=== PATIENT | female | born 1930 | race Caucasian/White ===

== ENCOUNTER 2016-12-21 08:16 | Observation (INO) ==
--- NOTE | 2016-12-21 08:21 | Emergency Department Note ---
Disposition Clinical Impression: Intractable low back pain Disposition: Admitted As Inpatient Condition: Good Forms: ED Satisfaction Letter Back Pain HPI - General Chief Complaint: ED Back Pain/Injury Stated Complaint: back pain Time Seen by Provider: 12/21/16 08:19 Source: patient, EMS Mode of arrival: EMS Limitations: no limitations Nursing Notes Reviewed: Yes Vital Signs Reviewed: Yes - History of Present Illness HPI Narrative: Patient relates she has been having pain in her mid lumbar region for about 3 days. The pain has been severe enough with motion that she states she has been largely bedridden for 2 days and has suffered to get to the bathroom. She has not had any difficulty with bladder or bowel function and is fully aware of the need to urinate or defecate. She denies any numbness tingling or weakness in the legs but states that she just has too much pain to stand and ambulate at this point. She denies groin numbness. She denies fevers or chills. She denies abdominal pains, weakness or dizziness. She has not been having atypical weight loss but states she did have some night sweats last night. She denies history of similar pain or trouble in the past. She cannot recall any specific fall or injury but states she has been helping a friend lift her walker in and out of her car. She does have a history of breast cancer that was treated in 2011. Pt Subjective Complaint: back pain Onset (ago): day(s) (3) Duration: gradually worsening Similar Symptoms Previously: No Location: lumbar spine Pain Severity: moderate, severe Quality: sharp, aching Radiation: right leg Improves with: immobilization Worsens with: movement, sitting upright, walking Context: unknown Associated symptoms: Reports: difficulty walking. Denies: numbness, weakness, incontinence of bowel/bladder, fever, chills, abdominal pain, dysuria, hematuria - Related Data Home Medications Medication Instructions Recorded Confirmed Levothyroxine [Synthroid] 50 mcg PO AD 02/25/15 12/21/16 Levothyroxine [Synthroid] 75 mcg PO AD 02/25/15 12/21/16 Lovastatin [Mevacor] 10 mg PO HS 02/25/15 12/21/16 Cholecalciferol (D-3) [Vitamin D] 1,000 unit PO DAILY 04/10/16 12/21/16 Lactose-Reduced Food [Ensure 1 bottle PO QWEEK 12/21/16 12/21/16 Original] Previous Rx's Medication Instructions Recorded Anastrozole [Arimidex] 1 mg PO DAILY #90 tablet 08/16/15 Allergies Allergy/AdvReac Type Severity Reaction Status Date / Time No Known Allergies Allergy Verified 12/21/16 08:16 All systems ED: reviewed and negative except as stated. Past Medical History - Past Medical History Attestation: Yes The following information was validated with the patient. Source: patient, old records reviewed, nursing notes reviewed Medical history: Reports: cancer (Right breast cancer), GERD, hyperlipidemia, kidney stones, renal disease, thyroid disease. Denies: CHF, coronary artery disease, DVT, hypertension, pulmonary embolus Surgical history: Reports: breast surgery (Right mastectomy 2011), cholecystectomy, pacemaker/AICD Psychiatric history: Reports: no psych history - Social History Smoking Status: Former smoker Alcohol use: Reports: rarely Drug use: Reports: none Physical Exam - General Limitations: physical limitation (Mobility from back pain) General appearance: alert, in no apparent distress - Head Head exam: atraumatic, normocephalic, normal inspection - Eye Eye exam: Present: normal appearance, PERRL, EOMI - ENT ENT exam: normal exam, normal oropharynx, mucous membranes moist - Neck Neck exam: Present: normal inspection, full ROM, trachea midline - Chest Chest inspection: Present: normal inspection, symmetric chest wall rise. Absent : tenderness - Respiratory Respiratory exam: Present: normal lung sounds bilaterally. Absent: respiratory distress, wheezes, prolonged expiratory phase - Cardiovascular Cardiovascular exam: Present: regular rate, normal rhythm, normal heart sounds. Absent: tachycardia - Abdominal Exam Abdominal exam: Present: soft, Non-Tender, normal bowel sounds. Absent: tenderness, distention, guarding, rebound, rigidity, mass, pulsatile mass - Extremities Exam Extremities exam: Present: normal inspection, full ROM, normal capillary refill. Absent: tenderness, pedal edema, calf tenderness - Expanded Lower Extremity Exam Neurovascular/Tendon exam: Present: normal capillary refill. Absent: motor deficit, sensory deficit, tendon deficit Gait: not tested/not observed - Back Exam Back exam: Present: normal inspection, vertebral tenderness (Mid lumbar). Absent: full ROM, CVA tenderness (R), CVA tenderness (L), muscle spasm, sciatic notch tenderness (R), sciatic notch tenderness (L), straight leg raise (R), straight leg raise (L) - Neurological Exam Neurological exam: Present: alert, oriented X3, reflexes normal (1+ bilateral patella). Absent: motor sensory deficit - Psychiatric Psychiatric exam: Present: normal affect, normal mood - Skin Skin exam: Present: warm, dry, intact, normal color Course Course Narrative: Imaging results are discussed with the patient. She has been given a dose of naproxen, Hooven and a dose of Zofran. Given her disability from this pain with inability to ambulate or function at home, I feel an observation of the hospitalist continued pain medication and consultation with physical therapy will be warranted. A page has been placed to Dr. Lane for this purpose. Vital Signs Temperature 98 F 12/21/16 08:17 Pulse Rate 92 12/21/16 08:17 Respiratory Rate 18 12/21/16 08:17 Blood Pressure 121/93 12/21/16 08:17 O2 Sat by Pulse Oximetry 92 12/21/16 08:17 Temperature 98 F 12/21/16 08:17 Pulse Rate 92 12/21/16 08:17 Respiratory Rate 18 12/21/16 08:17 Blood Pressure 121/93 12/21/16 08:17 O2 Sat by Pulse Oximetry 92 12/21/16 08:17 Oxygen Delivery Oxygen Delivery Room Air Back Pain/Injury - Differential Diagnosis Differential Diagnosis: Likely: lumbar radiculopathy (Compression fracture, bone metastasis, disc herniation, epidural hematoma), sciatica - Radiology Data Radiology results reviewed: Yes I reviewed the patient's radiology results. CT is performed of the lumbar spine. This demonstrates degenerative changes with degenerative disc disease most prominent at L4 and L5. There is mild central disc bulging without compromising impingement on the spinal canal. I do not see significant bulging into the foramen. There is no evidence for fracture or abnormal ossification to suggest possible metastatic disease. The aorta is with scattered calcification and normal in caliber. No other acute abnormalities are seen. This is on my interpretation. Radiologist impression: COMPARISON: 08/05/2013 CT HISTORY: severe LBP, right sciatica, no injury 2 day history of severe lower back pain with sciatica on the right FINDINGS: BONES/ALIGNMENT: 15 degrees levoscoliosis of the lumbar spine. There is no acute fracture or subluxation. DEGENERATIVE CHANGES: L1-L2: There is no significant disc protrusion, central spinal canal stenosis or neural foraminal narrowing. L2-L3: Diffuse disc bulge and mild facet DJD. There is mild spinal canal stenosis. Moderate left neural foraminal stenosis. The right neural foramen is patent. L3-L4: Diffuse disc bulge and moderate facet DJD. There is mild spinal canal stenosis and moderate left neural foraminal stenosis. The neural foramen is patent. L4-L5: Diffuse disc bulge and moderate facet DJD. There is moderate spinal canal stenosis. The neural foramina are patent. L5-S1: Degenerative disc disease and disc bulge. Severe facet DJD. There is moderate spinal canal stenosis. Mild bilateral neural foraminal stenosis. An osteophyte, exacerbated by scoliotic curvature, extending posteriorly to the right from the S1 segment of the sacrum contributes to significant mass effect upon the right descending S2 nerve root. SOFT TISSUES/RETROPERITONEUM: Cardiomegaly and COPD partially visualized in the lower chest. No paraspinal soft tissue findings. Impressions Lumbar Spine CT 12/21/16 08:20 IMPRESSION: 1. Multilevel degenerative changes in the lumbar spine are detailed above. 2. Scoliotic curvature osteophyte contribute to mass effect on the right S2 nerve root at the S1-2 segment. D/ / Raimundo Rollins MD / Raimundo Rollins MD Interpreting Provider: Raimundo Rollins MD
[2016-12-21] MEDS ORDERED: Ondansetron ODT 4 MG TAB.RAPDIS SL ONE (08:45)
[2016-12-21] MEDS ORDERED: *HR* HYDROcodone/Acet 5/325 mg TABLET PO ONE (08:45)
[2016-12-21] MEDS ORDERED: Ondansetron ODT 4 MG TAB.RAPDIS SL PRN (09:54)
[2016-12-21] MEDS ORDERED: *HR* HYDROcodone/Acet 5/325 mg TABLET PO PRN (09:54)
[2016-12-21] MEDS ORDERED: Naloxone 0.4 MG/ML INJ IVP PRN (09:54)
[2016-12-21] MEDS ORDERED: MOM Conc 10 ML UD.LIQ PO PRN (09:54)
[2016-12-21] MEDS ORDERED: predniSONE 20 MG TABLET PO ONE (12:38)
[2016-12-21 13:51] LABS: Basophils % 0.3 %; Eosinophils % 0.4 %; Hematocrit 39.1 % (35.3-44.9); Hemoglobin 12.9 g/dL (11.5-15.4); Immature Granulocytes % 0.3 % (0-4); Lymphocytes # 1.8 K/mcL (0.6-4.6); Lymphocytes % 23.8 %; Mean Corpuscular Hemoglobin 30.3 pg (28.0-33.3); Mean Corpuscular Volume 91.8 fL (83.0-100.0); Mean Platelet Volume 12.2 fL (9.4-12.4); Monocytes # 0.7 K/mcL (0.0-1.3); Monocytes % 9.1 %; Neutrophils # 4.9 K/mcL (1.6-8.9); Platelet Count 168 K/mcL (140-400); Red Blood Count 4.26 M/mcL (3.82-4.97); Red Cell Distribution Width 12.8 % (11.5-14.5); Segmented Neutrophils % 66.1 %
--- NOTE | 2016-12-21 14:06 | Internal Med History&Physical ---
Date of Encounter: 12/21/16 Time of Encounter: 12:10 Assessment and Plan (1) Intractable low back pain Current visit: Yes Status: Acute She has been given a dose of prednisone and Naprosyn. PT and OT evaluations have been ordered. Further workup and intervention will be done as needed. (2) Hypothyroid Current visit: Yes Status: Chronic TSH was normal at 0.592 on 09/12/2016. Qualifiers: Hypothyroidism type: unspecified Qualified Code(s): E03.9 - Hypothyroidism , unspecified (3) Azotemia Current visit: Yes Status: Acute Suspect CKD stage III. Creatinine was 1.26 on 09/09/2014. We will monitor renal indices periodically. Internal Medicine - H&P: HPI Chief complaint: Back pain Admitted From: Home Plans for Post Hospital Care: Home History of present illness: Ms. Cain is a 86 year old female who came to the emergency room stating she had back pain onset 3 days earlier. The pain was in her low back area and radiated down her right leg. It became so severe she was unable to get out of bed the previous 2 days. She states it took her 20 minutes to get out of bed this morning go to the restroom. She was evaluated in emergency room and CT showed multilevel degenerative changes in the lumbar spine with multilevel disc bulging and right S2 nerve root compression from an osteophyte. She was admitted to [facility] floor for ongoing care needs. She states for approximately 10 days she has been helping a neighbor by assisting in transportation including lifting the neighbor's wheeled walker into her car trunk. There was no fall or other injury associated. Her musk skeletal history is negative for gout but she does have known osteoporosis. Past Med Surg Social Fam HX - Past Medical History Medical history: cancer, GERD, hyperlipidemia, kidney stones, renal disease, thyroid disease Psychiatric history: no psych history - Past Surgical History Surgical History: breast surgery, cholecystectomy, pacemaker/AICD - Social History Smoking Status: Former smoker Smokeless Tobacco Status: No Alcohol use: rarely Drug use: none Internal Medicine - H&P: Meds Levothyroxine [Synthroid] 50 mcg PO AD 02/25/15 [History] Levothyroxine [Synthroid] 75 mcg PO AD 02/25/15 [History] Lovastatin [Mevacor] 10 mg PO HS 02/25/15 [History] Anastrozole [Arimidex] 1 mg PO DAILY #90 tablet 08/16/15 [Rx] Cholecalciferol (D-3) [Vitamin D] 1,000 unit PO DAILY 04/10/16 [History] Lactose-Reduced Food [Ensure Original] 1 bottle PO QWEEK 12/21/16 [History] Allergies No Known Allergies Allergy (Verified 12/21/16 08:16) All Systems PM: A 10-system review of systems was performed and is negative for pertinent findings except as documented above in the HPI. Review of systems: Gen.: Her weight has been stable at approximately 90 pounds for several years Cardiovascular: She had a pacemaker placed 2001 for "arrhythmia". She denies hypertension NC heart failure angina DVT or pulmonary embolus Respiratory: She smoked from age [age] never exceeding 1 pack per day. She has not had PFTs recently and does not wear home oxygen. She has not been tested for sleep apnea. GI: She had a gastric ulcer 2013 with biopsy showing no evidence of malignancy. She has no ongoing abdominal pain and no recent change in her bowel habits. She has GERD. She has had cholecystectomy. She denies disorders of her liver or exocrine pancreas. She had colonoscopy approximately 1999. : She has emote history of kidney stones but denies other kidney or bladder disorders. Review of available records show GFR consistent with chronic kidney disease stage III Neurologic: She denies large distribution strokes or seizures Endocrine: She has hypothyroidism and hyperlipidemia but denies DM 2 Hematology/oncology: She had right mastectomy 2011 and is completing a 5 year course of Arimidex. She believes she is cancer free. She denies other internal malignancies or anemia history Psychiatric: She denies anxiety depression or other mental health issues Musk skeletal: As per history of present illness . - Constitutional Vitals: Temp Pulse Resp BP Pulse Ox 97.8 F 71 17 122/74 93 12/21/16 13:58 12/21/16 13:58 12/21/16 13:58 12/21/16 13:58 12/21/16 13:58 Exam: Gen.: She is a well-developed well-nourished female who appears in no severe distress at present time HEENT: Head is atraumatic and normocephalic. Eyes: EOMI. There is no scleral icterus. Mouth: Mucosa is moist. Neck: Supple and nontender. There is no thyromegaly or adenopathy noted. Heart: Regular without murmurs gallops or ectopics. Lungs: No wheezes or crackles are heard. Abdomen: Soft and nontender. No masses or guarding are noted. Extremities: There is no cyanosis edema or clubbing noted. Dorsalis pedis and posterior tibial pulses are trace palpable bilaterally. Back: She complains of low back pain on attempting to rise from a semirecumbent position to upright. Neurologic: Mental status: She is talkative and a good historian. Cranial nerves: Smile is symmetric. Forehead wrinkles bilaterally. Tongue protrudes midline. EOMI. Motor: There is no pronator drift. Cerebellar: Finger to nose is intact bilaterally. Skin: Warm and dry Internal Med - H&P Results - Labs CBC & Chem 7: 12/21/16 13:40 Labs: Short CBC 12/21/16 Range/Units 13:40 WBC 7.4 (4.3-11.1) K/mcL Hgb 12.9 (11.5-15.4) g/dL Hct 39.1 (35.3-44.9) % Plt Count 168 (140-400) K/mcL Neutrophils # 4.9 (1.6-8.9) K/mcL - VTE Documentation of Mechanical Device: Graduated compression elastic hosiery
[2016-12-21 14:08] LABS: Albumin 3.5 g/dL (3.5-5.0); Albumin/Globulin Ratio 0.9 (1.1-2.2); Bilirubin,Total 0.7 mg/dL (0.2-1.2); Calcium 9.6 mg/dL (8.6-10.8); Globulin 3.7 g/dL (2.4-3.5); Total Protein 7.2 g/dL (6.0-8.3)
[2016-12-21] MEDS: predniSONE 20 MG TABLET PO SCH (17:48)
[2016-12-22] MEDS: predniSONE 20 MG TABLET PO SCH (08:17)
[2016-12-22] MEDS ORDERED: Cholecalciferol (D-3) 1,000 UNIT TABLET PO SCH (09:00)
[2016-12-22] MEDS ORDERED: Anastrozole 1 MG TABLET PO SCH (09:00)
--- NOTE | 2016-12-22 09:33 | Internal Med Progress Note ---
Date of Encounter: 12/22/16 Time of Encounter: 09:20 - Assessment and plan (1) Intractable low back pain Current Visit: Yes Status: Acute Assessment and plan: December 22. Will hold Naprosyn because of renal insufficiency. Continue low- dose prednisone. PT and OT evaluations are in progress. Anticipate discharge home tomorrow. (2) Hypothyroid Current Visit: Yes Status: Chronic Assessment and plan: December 22. Continue present dose Synthroid Qualifiers: Hypothyroidism type: unspecified Qualified Code(s): E03.9 - Hypothyroidism , unspecified (3) Azotemia Current Visit: Yes Status: Acute Assessment and plan: December 22. Consistent with chronic kidney disease stage III. We will avoid NSAIDs. - Subjective Interval history: December 22. She has no new complaints. She states her back pain has resolved. She had an episode of vomiting a few hours ago but feels no nausea now. - Constitutional Vitals: Temp Pulse Resp BP Pulse Ox 98.5 F 77 18 117/67 94 12/22/16 06:34 12/22/16 06:34 12/22/16 06:34 12/22/16 06:34 12/22/16 06:34 Exam: She is resting comfortably in bed and appears in no acute distress. Affect is bright and cheerful. I reviewed her medications and lab results. Internal Medicine: Result - Labs CBC & Chem 7: 12/21/16 13:40 12/21/16 13:40 Labs: Short CBC 12/21/16 Range/Units 13:40 WBC 7.4 (4.3-11.1) K/mcL Hgb 12.9 (11.5-15.4) g/dL Hct 39.1 (35.3-44.9) % Plt Count 168 (140-400) K/mcL Neutrophils # 4.9 (1.6-8.9) K/mcL BMP 12/21/16 13:40 Sodium 143 Potassium 4.0 Chloride 103 Carbon Dioxide 25 BUN 29 H Creatinine 1.09 Glucose 104 H Calcium 9.6 Liver Function 12/21/16 Range/Units 13:40 Total Bilirubin 0.7 (0.2-1.2) mg/dL AST 11 (5-34) Units/L ALT 6 (0-55) Units/L Alkaline Phosphatase 49 (38-126) Units/L Albumin 3.5 (3.5-5.0) g/dL - VTE Documentation of Mechanical Device: Graduated compression elastic hosiery Consult Discharge Plan - Plan Referrals: NONE,PCP [Primary Care Provider] - 1 week
[2016-12-22] MEDS ORDERED: predniSONE 10 MG TABLET PO SCH (09:37)
[2016-12-22 10:26] VITALS: BP 118/77
--- NOTE | 2016-12-22 11:45 | Discharge Summary ---
Date of Encounter: 12/22/16 Time of Encounter: 11:35 - Discharge Diagnosis (1) Intractable low back pain Priority: Primary Status: Acute (2) Hypothyroid Priority: Secondary Status: Chronic Qualifiers: Hypothyroidism type: unspecified Qualified Code(s): E03.9 - Hypothyroidism , unspecified (3) CKD (chronic kidney disease) stage 3, GFR 30-59 ml/min Priority: Secondary Status: Chronic - Discharge Medications Prescriptions: predniSONE [PredniSONE] 10 mg PO BIDWM #6 tab Home Medications: Levothyroxine [Synthroid] 50 mcg PO AD 02/25/15 [History] Levothyroxine [Synthroid] 75 mcg PO AD 02/25/15 [History] Lovastatin [Mevacor] 10 mg PO HS 02/25/15 [History] Anastrozole [Arimidex] 1 mg PO DAILY #90 tablet 08/16/15 [Rx] Cholecalciferol (D-3) [Vitamin D] 1,000 unit PO DAILY 04/10/16 [History] Lactose-Reduced Food [Ensure Original] 1 bottle PO QWEEK 12/21/16 [History] predniSONE [PredniSONE] 10 mg PO BIDWM #6 tab 12/22/16 [Rx] Allergies/Adverse Reactions: Allergies No Known Allergies Allergy (Verified 12/21/16 08:16) Date of admission: 12/21/16 09:21 Primary care physician: Ronnell Reyes M.D. Consults: 12/21/16 10:16 Consult to Nutrition [CONS] Routine Comment: Consulting Provider: NUTRITION Reason for Dietary Consult: MST Score 12/21/16 10:31 Consult to Occupational Therapy [CONS] Routine Comment: Evaluate, develop and implement POC Reason for Consult: PAIN - Patient Status Disposition: Home, Self-Care Condition: Good Functional capacity at discharge: independent ambulation Overall status at discharge: patient is progressing back to baseline - Discharge Instructions Follow Up With: Ronnell Reyes MD [Partnered Physician] - 1 week - Diet and Activity Activity: resume usual activities as tolerated Diet: advance to your usual diet Hospital course: Ms. Cain is a 86 year old female who came to the emergency room stating she had back pain onset 3 days earlier. The pain was in her low back area and radiated down her right leg. It became so severe she was unable to get out of bed the previous 2 days. She states it took her 20 minutes to get out of bed this morning go to the restroom. She was evaluated in emergency room and CT showed multilevel degenerative changes in the lumbar spine with multilevel disc bulging and right S2 nerve root compression from an osteophyte. She was admitted to [facility] for ongoing care needs. Initial orders were written by the emergency room physician. I saw her on December 21 and performed the history and physical. She was given a single dose of Naprosyn and started on prednisone. Labs were ordered since none were done in the emergency room. Creatinine returned at 1.09 with estimated GFR 48. Review of previous labs showed results consistent with underlying chronic kidney disease stage III. This can be monitored by her PCP Dr. Ronnell Reyes. She had complete resolution of back pain by the time I saw her December 22. She was evaluated by physical therapy and occupational therapy. She was able to ambulate in the hallway without difficulty or pain. She wished to be discharged which I felt was reasonable. I told her she could use OTC Tylenol on a prn basis for pain control but she should avoid NSAIDs because of chronic kidney disease. I will give her 3 additional days of prednisone 10 mg twice a day for anti-inflammatory effect for back pain. She will follow with her PCP Dr. Ronnell Reyes within 1 week. - Time Spent with Patient Total time spent providing and/or coordinating discharge services: - Constitutional Vitals: Temp Pulse Resp BP Pulse Ox 97.8 F 84 18 118/77 90 12/22/16 10:23 12/22/16 10:23 12/22/16 10:23 12/22/16 10:23 12/22/16 10:23 - VTE Documentation of Mechanical Device: Graduated compression elastic hosiery
== END 2016-12-22 14:02 | disposition home or self-care (01) ==
LOC: EMEROOPIK 08:16 → INPPIK 08:16
PROVIDERS: ADMIT Internal Medicine; ATTEND Internal Medicine